=== PATIENT | female | born 1970 | race African-American/Black ===

== ENCOUNTER 2017-07-14 17:29 | Emergency (ER) | payer BC, MEDICAID ==
[~2017-07-14] VITALS: Ht 157.5 cm; Wt 73.2 kg
[2017-07-15 02:11] LABS: BASOPHILS % 0.5 % (0.0-2.0); EOSINOPHILS % 1.3 % (0.0-5.0); HEMATOCRIT. 36.6 % (36.0-48.0); HEMOGLOBIN. 11.3 g/dL (12.0-16.0); LYMPHOCYTES % 18.6 % (20.0-50.0); MEAN CORPUSCULAR HEMOGLOBIN 25.8 pg (28.0-32.0); MEAN CORPUSCULAR VOLUME 83.8 fL (81.0-99.0); MEAN PLATELET VOLUME 8.3 fl (7.4-10.4); NEUTROPHILS % 73.6 % (40.0-76.0); PLATELET 373 x1000/uL (130-400); RED BLOOD CELL COUNT 4.37 mill/uL (4.2-5.4); RED CELL DISTRIBUTION WIDTH 17.8 % (11.6-14.6)
[2017-07-15 02:16] LABS: CHLORIDE 110 mEq/L (98-107)
[2017-07-15 02:32] LABS: CARBON DIOXIDE 23 mEq/L (21-32); ETHANOL BLOOD < 10 mg/dL
[2017-07-15 02:36] LABS: CREATINE KINASE 1762 IU/L (26-192)
[2017-07-15 05:13] LABS: CLARITY URINE CLEAR (CLEAR); COLOR URINE YELLOW (YELLOW); GLUCOSE URINE 2+ (NEGATIVE); KETONES URINE NEGATIVE (NEGATIVE); LEUKOCYTE ESTERASE URINE TRACE (NEGATIVE); NITRITE URINE NEGATIVE (NEGATIVE); OCCULT BLOOD URINE TRACE (NEGATIVE); PH URINE 6.5 (4.5-8.0); PROTEIN URINE TRACE (NEGATIVE); SPECIFIC GRAVITY URINE 1.009 (1.005-1.030); UROBILINOGEN URINE 0.2 E.U./dL (0.2-1.0)
[2017-07-15 05:39] LABS: *AMPHETAMINES SCREEN URINE NEGATIVE (NEGATIVE); *BARBITURATES SCREEN URINE NEGATIVE (NEGATIVE); *BENZODIAZEPINES SCREEN URINE NEGATIVE (NEGATIVE); *COCAINE SCREEN URINE NEGATIVE (NEGATIVE); CANNABINOID URINE SCREEN NEGATIVE (NEGATIVE); METHADONE URINE SCREEN NEGATIVE (NEGATIVE); OPIATES URINE SCREEN NEGATIVE (NEGATIVE); PHENCYCLIDINE URINE SCREEN NEGATIVE (NEGATIVE)
[2017-07-15] MEDS ORDERED: SODIUM CHLORIDE 0.9% 500 ML IV ONE (05:41)
[2017-07-15] MEDS ORDERED: SODIUM CHLORIDE 0.9% 1,000 ML IV ONE (05:41)
[2017-07-15] MEDS ORDERED: CEFTRIAXONE 1 G PREMIX 50 ML IV ONE (07:00)
[2017-07-15 11:11] LABS: CREATINE KINASE 1243 IU/L (26-192)
[2017-07-15] MEDS ORDERED: LITHIUM CARBONATE 150 MG CAPSULE PO STA (14:25)
[2017-07-15] MEDS ORDERED: ARIPIPRAZOLE 15MG TABLET PO ONE (14:30)
[2017-07-15 16:42] VITALS: BP 160/97
[2017-07-15] MEDS ORDERED: METFORMIN HCL 500MG TABLET PO ONE (17:30)
== END 2017-07-15 19:07 | disposition left against medical advice (07) ==
LOC: ER 17:29
DX: F23 Brief psychotic disorder (principal); E11.9 Type 2 diabetes mellitus without complications; F31.9 Bipolar disorder, unspecified; Z98.890 Other specified postprocedural states
CPT/HCPCS: 36415; 80053; 80165; 80305; 80307; 80329; 81001; 81025; 82550; 82962; 84443; 85025; 93005; 96360; 96361; 99285; G0482; J0696; J7030; J7040